=== PATIENT | female | born 1960 | race Caucasian/White ===

== ENCOUNTER 2018-11-08 15:02 | Emergency (ER) | payer OTHER ==
[~2018-11-08] VITALS: Ht 167.6 cm; Wt 81.8 kg
[2018-11-08] MEDS ORDERED: LIDOCAINE 5% TRANSDERMAL PATCH TD ONE (17:30)
[2018-11-08] MEDS ORDERED: KETOROLAC TROMETHAMINE 30 MG/ML VIAL IM ONE (17:30)
[2018-11-08] MEDS ORDERED: METHOCARBAMOL 500 MG TABLET PO ONE (17:30)
[2018-11-08 18:15] VITALS: BP 140/74
== END 2018-11-08 18:30 | disposition home or self-care (01) ==
LOC: EMS 15:04
DX: M54.6 Pain in thoracic spine (principal); R03.0 Elevated blood-pressure reading, without diagnosis of hypertension
CPT/HCPCS: 96372; 99283; J1885

== ENCOUNTER 2022-08-29 17:01 | Emergency (ER) | payer OTHER ==
[~2022-08-29] VITALS: Ht 165.1 cm; Wt 84.1 kg
[2022-08-29] MEDS ORDERED: SODIUM CHLORIDE 0.9% 1,000 ML IV ONE (17:30)
[2022-08-29] MEDS ORDERED: FAMOTIDINE 20 MG/2 ML VIAL IVP ONE (17:30)
[2022-08-29] MEDS ORDERED: DiphenhydrAMINE HCL 50 MG/ML VIAL IVP ONE (17:30)
[2022-08-29] MEDS ORDERED: MethylPREDNISolone SOD SUCC 125 MG/2 ML VIAL IVP ONE (17:30)
[2022-08-29 20:43] VITALS: BP 151/86; PULSE 98; RESP 18; TEMP 98.6
[2022-08-29] MEDS ORDERED: DIPH50 PO (20:45)
[2022-08-29] MEDS ORDERED: EPIN0.3P3 IM (20:45)
== END 2022-08-29 21:42 | disposition home or self-care (01) ==
LOC: EMS 17:06
DX: T78.40XA Allergy, unspecified, initial encounter (principal); Z98.890 Other specified postprocedural states; Z91.013 Allergy to seafood; X58.XXXA Exposure to other specified factors, initial encounter
CPT/HCPCS: 99284; 96374; 96375; 96361; J1200; J3490; J2930; J7030